=== PATIENT | male | born 1995 | race Two or more races ===

== ENCOUNTER 2024-01-02 04:50 | Emergency (ER) | payer BC ==
[~2024-01-02] VITALS: Ht 193 cm; Wt 128.3 kg
[2024-01-02 07:10] VITALS: BP 125/70; PULSE 72; RESP 17; TEMP 98.4; O2SAT 95
[2024-01-02] MEDS ORDERED: OMEP-434 PO (07:53)
[2024-01-02] MEDS ORDERED: PRED20TA2 PO (07:53)
[2024-01-02] MEDS ORDERED: AMOX875T3 PO (07:53)
== END 2024-01-02 07:57 | disposition home or self-care (01) ==
LOC: ER 04:50
DX: J01.00 Acute maxillary sinusitis, unspecified (principal); K21.9 Gastro-esophageal reflux disease without esophagitis; Z76.0 Encounter for issue of repeat prescription; Z79.899 Other long term (current) drug therapy